=== PATIENT | male | born 1945 | race Caucasian/White ===

== ENCOUNTER → 2016-08-03 | Outpatient (CLI) | payer MEDICARE, OTHER ==
[2016-08-03 10:38] LABS: Blood Urea Nitrogen 18 mg/dL (9-20); Non-African American GFR(MDRD) >60 (>60 ml/min/1.73 sqM)
--- NOTE | 2016-08-03 12:11 | CT ---
EXAMINATION TYPE: CT urogram wo/w con DATE OF EXAM: 08/03/2016 11:48 AM COMPARISON: NONE HISTORY: Gross hematuria, blood in urine 1-2 weeks [address] DLP: 1211.5 mGycm, Automated Exposure Control for Dose Reduction was Utilized. CONTRAST: CT scan of the abdomen and pelvis is performed without oral and without and with IV Contrast, patient injected with 100 mL of Omnipaque 300. Urogram protocol with Three-D reconstructed images created a independent workstation and reviewed. FINDINGS: KUB: Noncontrast images show no renal calculi bilaterally. Postcontrast images show symmetric cortica l medullary uptake and excretion from both kidneys. There is simple appearing partially exophytic 3.5 x 3.2 cm cyst laterally and anteriorly lower pole level right kidney on axial image 36 series 6. The re is fullness of left renal pelvis without calyceal dilatation. There is no right-sided hydronephros is. Visualized portion of both ureters show no dilatation or obstructing calculus. Bladder is somewha t trabeculated and lobulated. No suspicious intraluminal mass or worrisome wall thickening is clearly seen. LUNG BASES: There is linear scarring or atelectasis in the central right lower lung. Some moderate ca lcifications at level of the aortic valve and root are noted and can be correlated with cardiac echo if desired. LIVER/GB: No significant abnormality is appreciated. PANCREAS: No significant abnormality is seen. SPLEEN: No significant abnormality is seen. ADRENALS: No significant abnormality is seen. KIDNEYS: No significant abnormality is seen. BOWEL: Diverticula in the left and sigmoid colon are present. There is no convincing evidence for acu te diverticulitis. PROSTATE/SEMINAL VESICLES: Prostate gland is markedly enlarged bulging on bladder base measuring appr oximately 5.6 x 5.7 x 6.0 cm on axial image 77 series 17 and coronal image [address] findings are consistent with BPH, clinical correlation advised. LYMPH NODES: No greater than 1cm abdominal or pelvic lymph nodes are appreciated. OSSEOUS STRUCTURES: Left L3-L4 level there is severe disc space narrowing with spurring and subchondr al cystic change. There is slight dextroconvex scoliotic curvature centered at L3 level. There is gra de 1 anterolisthesis of L3 on L4. There is additional multilevel spurring most prominent in the visua lized thoracic spine. OTHER: There is small fat-containing right inguinal hernia. IMPRESSION: 1. No suspicious mass or calculus is seen to account for patient's symptoms of gross hematuria. 2. Markedly enlarged prostate gland consistent with BPH, clinical correlation advised.
== END | disposition home or self-care (01) ==
LOC: RADCTMAIN 09:57
PROVIDERS: ATTEND Urology
DX: N40.0 Benign prostatic hyperplasia without lower urinary tract symptoms (principal); R31.0 Gross hematuria
CPT/HCPCS: 82565; 84520; 74178; 36415; 74400; Q9967

== ENCOUNTER → 2018-12-02 | Outpatient (CLI) | payer MEDICARE, OTHER ==
--- NOTE | 2018-12-02 17:42 | CT ---
EXAMINATION TYPE: CT chest w con DATE OF EXAM: 12/02/2018 COMPARISON: 03/01/2015 CTA chest HISTORY: Abnormal lung field history of mass removal. CT DLP: 284.6 mGycm, Automated exposure control for dose reduction was used. CONTRAST: Performed injected with 100 mL of Isovue 300. TECHNIQUE: Axial images were obtained at 5 mm thick sections. Reconstructed images are reviewed on [employer] computer in the coronal plane. FINDINGS: Portion of the thyroid visualized is normal. There is a right paraspinal mass in the posterior mediastinum, series 3 image 10. This measures 4.2 x 2.4 cm in size. This is smaller than the original comparison 03/01/2015. No enlarged mediastinal or hilar adenopathy is evident. The ascending aorta diameter at the level o f the main pulmonary artery is 3.7 cm. The main pulmonary artery diameter at the bifurcation is 2.[address] sections are obtained through the upper abdomen. There is a 3.9 cm cyst on the superiore a nterior right kidney measuring 3 Hounsfield units. Pancreas atrophy is present. IMPRESSIONS: 1. Right paraspinal mass of uncertain etiology. There is a history of mass removal and this could be recurrence. This is smaller than the comparison CTA chest from [facility] labeled with the pat ient's name dated 03/01/2015.
== END | disposition home or self-care (01) ==
LOC: RADCTMAIN 08:25 → EEVIPCON 09:20
PROVIDERS: ATTEND Internal Medicine Critical Care Medicine
DX: M48.9 Spondylopathy, unspecified (principal); R91.8 Other nonspecific abnormal finding of lung field; Z98.890 Other specified postprocedural states
CPT/HCPCS: 82565; 84520; 71260; 36415; Q9967